=== PATIENT | male | born 2000 ===

== ENCOUNTER → 2021-03-14 14:29 | Outpatient (CLI) | payer SELFPAY ==
[2021-03-17 03:43] LABS: Chlamydia trachomatis NAA Negative (Negative); Neisseria gonorrhoeae NAA Positive (Negative)
== END ==
PROVIDERS: PCP Physician Assistant; Referring Provider Physician Assistant; Visit Provider Physician Assistant
DX: Z20.2 Contact with and (suspected) exposure to infections with a predominantly sexual mode of transmission (principal)
CPT/HCPCS: 87491; 87591